=== PATIENT | male | born 1990 | race Caucasian/White ===

== ENCOUNTER 2016-12-01 11:27 | Inpatient (IN) | payer OTHER ==
[~2016-12-01] VITALS: Ht 172.7 cm; Wt 135.6 kg
[2016-12-01 11:27] VITALS: BP_SYST 148
[2016-12-01] MEDS ORDERED: NACL 0.9% 1,000 ML IV ONE ×3 (11:30→13:15)
[2016-12-01] MEDS ORDERED: LORazepam 2 MG/ML VIAL IVP ONE (11:30)
[2016-12-01] MEDS ORDERED: LORazepam 2 MG/ML VIAL (FOR ER USE) ONE (11:51)
[2016-12-01 11:57] LABS: HEMATOCRIT 52.9 % (36-54); HEMOGLOBIN 17.1 g/dL (14.0-18.0); MEAN CORPUSCULAR HEMOGLOBIN 29 pg (27-31); MEAN CORPUSCULAR HGB CONC 32 % (32-36); MEAN CORPUSCULAR VOLUME 90 fL (79.0-98.0); PLATELET COUNT (AUTO) 250 K/uL (130-430); RED BLOOD CELL COUNT(AUTO) 5.88 MIL/uL (4.2-6.2); RED CELL DISTRIBUTION WIDTH 13.3 % (9.0-15.0); WHITE BLOOD COUNT (AUTO) 12.3 K/uL (4.8-10.8)
[2016-12-01] MEDS ORDERED: LACO200T2 PO (12:02)
[2016-12-01] MEDS ORDERED: CARB300C PO (12:02)
[2016-12-01] MEDS ORDERED: LACO100T2 PO (12:02)
[2016-12-01] MEDS ORDERED: LACOSAMIDE 100 MG TABLET PO ONE (12:15)
[2016-12-01 12:16] LABS: BILIRUBIN,URINE NEGATIVE (NEGATIVE); CLARITY/URINE SL HAZY (CLEAR); COLOR,URINE YELLOW (YELLOW); GLUCOSE,URINE NEGATIVE (NEGATIVE); KETONES,URINE NEGATIVE (NEGATIVE); LEUKOCYTE ESTERASE ,URINE NEGATIVE (NEGATIVE); NITRITE, URINE NEGATIVE (NEGATIVE); PH,URINE 6.5 (5.0-8.0); PROTEIN URINE TRACE (NEGATIVE); UROBILINOGEN,URINE 0.2 (0.2-1.0)
[2016-12-01 12:21] LABS: CALCIUM 9.5 mg/dL (8.4-11.0); CHLORIDE 103 mmol/L (98-107); CREATININE 1.39 mg/dL (0.55-1.30); GFR AFRICAN AMERICAN 78 mL/min (>90); GLUCOSE 126 mg/dL (70-99); POTASSIUM 3.6 mmol/L (3.5-5.1); SODIUM SERUM 136 mmol/L (136-145); UREA NITROGEN, BLOOD 13 mg/dL (8-21)
[2016-12-01 12:23] LABS: ALANINE AMINOTRANSFERASE 45 U/L (12-78); ALBUMIN 4.6 g/dL (3.4-4.8); ASPARTATE AMINOTRANSFERASE 19 U/L (10-37); CREATINE KINASE, TOTAL 164 U/L (39-308); TOTAL BILIRUBIN 0.5 mg/dL (0.0-1.0); TOTAL PROTEIN, SERUM 8.4 g/dL (6.4-8.3)
[2016-12-01 12:25] LABS: BLOOD, URINE TRACE (NEGATIVE)
[2016-12-01 12:30] LABS: BACTERIA,URINE RARE /HPF (None Seen); RBC,URINE 0-3 /HPF (0-3); WBC,URINE NONE SEEN /HPF (0-3)
[2016-12-01 12:32] LABS: ATYPICAL LYMPHOCYTES % 2 % (0-0); BASOPHILS % (MANUAL) 0 % (0-2); EOSINOPHILS % (MANUAL) 3 % (0-7); LYMPHOCYTES % (MANUAL) 50 % (20-46); MONOCYTES % (MANUAL) 7 % (0-11)
[2016-12-01] MEDS ORDERED: LACOSAMIDE 100 MG TABLET ONE (12:36)
[2016-12-01] MEDS ORDERED: ESLI600T PO (12:36)
[2016-12-01 12:53] LABS: ANION GAP 21 (5-15)
[2016-12-01 12:55] LABS: CARBAMAZEPINE (TEGRETOL) < 0 ug/mL (4-12)
[2016-12-01] MEDS ORDERED: cefTRIAXone 1 GM in D5W 50 ML IV ONE (13:15)
[2016-12-01] MEDS ORDERED: cefTRIAXone 1 GM VIAL ONE (14:04)
[2016-12-01 15:02] VITALS: BP_SYST 143
[2016-12-01] MEDS ORDERED: cefTRIAXone 1 GM IVPB PREMIX 50 ML IV ONE (16:30)
[2016-12-01 17:50] VITALS: BP_SYST 137
[2016-12-01] MEDS: NACL 0.9% 1,000 ML IV SCH (17:58)
[2016-12-01 19:30] VITALS: BP_SYST 122
[2016-12-01] MEDS ORDERED: LACOSAMIDE 100 MG TABLET PO SCH (21:00)
[2016-12-01] MEDS ORDERED: ESLICARBAZEPINE 600 MG PO SCH (21:00)
[2016-12-01] MEDS ORDERED: ESLICARBAZEPINE ACETATE 600 MG PO SCH (21:00)
[2016-12-01] MEDS: LACOSAMIDE 100 MG TABLET PO SCH (21:17)
[2016-12-01 23:01] VITALS: BP_SYST 135
[2016-12-02 05:10] VITALS: BP_SYST 128
[2016-12-02 07:41] LABS: CALCIUM 8.4 mg/dL (8.4-11.0); CREATININE 0.89 mg/dL (0.55-1.30); POTASSIUM 3.7 mmol/L (3.5-5.1)
[2016-12-02 08:02] LABS: BASOPHILS % (AUTO) 0.7 % (0.0-2.0); EOSINOPHILS # (AUTO) 0.1 K/uL (0.0-0.4); EOSINOPHILS % (AUTO) 1.9 % (0.0-4.0); HEMATOCRIT 43.8 % (36-54); LYMPHOCYTES # (AUTO) 1.4 K/uL (1.0-5.5); LYMPHOCYTES % (AUTO) 24.2 % (20.5-51.5); MEAN CORPUSCULAR HEMOGLOBIN 30 pg (27-31); MEAN CORPUSCULAR HGB CONC 34 % (32-36); MONOCYTES # (AUTO) 0.5 K/uL (0.0-1.0); MONOCYTES % (AUTO) 8.5 % (1.7-9.3); NEUTROPHILS # (AUTO) 3.7 K/uL (1.8-7.7); NEUTROPHILS % (AUTO) 64.7 % (40.0-70.0); PLATELET COUNT (AUTO) 172 K/uL (130-430); RED CELL DISTRIBUTION WIDTH 12.9 % (9.0-15.0); WHITE BLOOD COUNT (AUTO) 5.7 K/uL (4.8-10.8)
[2016-12-02 08:15] LABS: MEAN CORPUSCULAR VOLUME 88 fL (79.0-98.0)
[2016-12-02] MEDS: LACOSAMIDE 100 MG TABLET PO SCH (09:23)
[2016-12-02] MEDS: NACL 0.9% 1,000 ML IV SCH (09:24)
[2016-12-02 09:44] VITALS: BP_SYST 136
[2016-12-02 12:10] VITALS: BP_SYST 138
[2016-12-02 13:43] VITALS: BP_SYST 136
== END 2016-12-02 14:30 | disposition home or self-care (01) | DRG 101 ==
LOC: SED 11:27 → STU 14:20
PROVIDERS: ADMIT Family Medicine; ATTEND Family Medicine
DX: G40.909 Epilepsy, unspecified, not intractable, without status epilepticus (principal); E87.2 Acidosis; N17.9 Acute kidney failure, unspecified; D72.829 Elevated white blood cell count, unspecified; Z79.899 Other long term (current) drug therapy
CPT/HCPCS: 36415; 70450-TC; 71010; 80048; 80053; 80156-TC; 81000-TC; 82550-TC; 83605; 84484; 85007; 85025; 85027; 87040-TC; 93005; 96361; 96365; 96375; J0696; J2060; J7030; J7060